=== PATIENT | male | born 1960 | race Two or more races ===

== ENCOUNTER 2018-04-18 19:54 | Inpatient (IN) | payer MEDICARE, OTHER ==
[~2018-04-18] VITALS: Ht 172.7 cm; Wt 62.1 kg
--- NOTE | 2018-04-18 20:15 | NUR ---
PT BB SELF C/C R LOWER LEG SWELLING/PAIN 10/10 RADIATING FROM UPPER R THIGH DOWN TO R LOWER KNEE. PT IS AAOX4. PT IS AFEBRILE. PT DENIES N/V/D. SKIN WNL. PT DENIES BLOODY SPUTUM/COUGH. NO S/S OF ACUTE DISTRESS NOTED. RESP EVEN AND UNLABORED. PT PLACED ON DETAIL DRAFTER AND POX. PT SAFETY AND COMFORT MEASURES IN PLACE. AWAITING MD FOR EVAL.
--- NOTE | 2018-04-18 20:30 | NUR ---
CALLED RADIOLOGY FOR PSYCHIATRIC SECRETARY
[2018-04-18 20:36] LABS: BASOPHILS # (AUTO) 0.3 /CMM (0.0-0.2); BASOPHILS % (AUTO) 4.2 % (0.0-2.0); EOSINOPHILS % (AUTO) 0.8 % (0.0-6.0); HEMATOCRIT 58 % (39-51); LYMPHOCYTES # (AUTO) 1.1 /CMM (0.8-4.8); LYMPHOCYTES % (AUTO) 14.2 % (20.0-44.0); MEAN CORPUSCULAR HEMOGLOBIN 30 PG (26.0-33.0); MEAN CORPUSCULAR HGB CONC 33 g/dl (31.0-36.0); MEAN CORPUSCULAR VOLUME 92 fL (80-96); MONOCYTES # (AUTO) 0.7 /CMM (0.1-1.30); MONOCYTES % (AUTO) 9.3 % (2.0-12.0); NEUTROPHILS # (AUTO) 5.8 /CMM (1.8-8.9); NEUTROPHILS % (AUTO) 71.5 % (43.0-81.0); PLATELET COUNT (AUTO) 168 /CMM (150-450); RDW COEFFICIENT OF VARIATION 14.5 (11.5-15.0)
[2018-04-18 20:55] LABS: CALCIUM, SERUM 8.8 mg/dL (8.5-10.1); CREATININE 0.9 mg/dL (0.6-1.3); POTASSIUM 4.2 mmol/L (3.5-5.1)
[2018-04-18 20:59] LABS: INR 1.06 (0.87-1.13)
[2018-04-18] MEDS ORDERED: ACETAMINOPHEN ES 500 MG TABLET PO ONE (21:00)
[2018-04-18 21:12] LABS: EOSINOPHILS % (MANUAL) 2 % (0-4); LYMPHOCYTES % (MANUAL) 10 % (16-48); MONOCYTES % (MANUAL) 1 % (0-11.0); NEUTROPHILS % (MANUAL) 86 (42-76); REACTIVE LYMPHOCYTES 1 % (0-0)
--- NOTE | 2018-04-18 21:44 | NUR ---
INITIAL FINDINGS OF DUPLEX TEST FOR LOWER EXT RIGHT SHOWED POSITIVE FOR DVT AT THE CFV, SFV PROX, SFV MID AND POPV LEVELS. ADVISED ATTENDING RN (ARABELLA) AND ESCOBAR HOTLINE REP (JAMES) OF PRELIMARY RESULTS.
--- NOTE | 2018-04-18 21:48 | NUR ---
CALLED FOR MED SURG BED
[2018-04-18] MEDS ORDERED: ENOXAPARIN SODIUM 30 MG/0.3 ML DISP.SYRIN IV ONE (22:00)
[2018-04-18] MEDS ORDERED: ENOXAPARIN SODIUM 80 MG/0.8 ML DISP.SYRIN SQ ONE (22:21)
[2018-04-18] MEDS ORDERED: HYDROCODONE/APAP 5/325MG 1 EACH TABLET PO PRN (22:30)
[2018-04-18] MEDS ORDERED: Z GUARD REMEDY 2 OZ OINT TP PRN (22:30)
[2018-04-18] MEDS ORDERED: ZOLPIDEM TARTRATE 5 MG TABLET PO PRN (22:30)
[2018-04-18] MEDS ORDERED: MAG HYDROX/AL HYDROX/SIMETH 30 ML UDC PO PRN (22:30)
[2018-04-18] MEDS ORDERED: MORPHINE SULFATE INJ 2 MG/ML DISP.SYRIN IV PRN (22:30)
[2018-04-18] MEDS ORDERED: ACETAMINOPHEN 325 MG TABLET PO PRN (22:30)
[2018-04-18] MEDS ORDERED: ENOXAPARIN SODIUM 60 MG/0.6 ML DISP.SYRIN SQ ONE (22:30)
[2018-04-18] MEDS ORDERED: MAGNESIUM HYDROXIDE 30 ML UDC PO PRN (22:30)
[2018-04-18] MEDS ORDERED: ONDANSETRON HCL/PF 4 MG/2 ML VIAL IVP PRN (22:30)
--- NOTE | 2018-04-18 22:30 | NUR ---
TO BED 304-2
--- NOTE | 2018-04-18 22:44 | NUR ---
REPORT GIVEN TO [facility] [employer]NAGERNERY RAMIRES FOR [place]
[2018-04-19] VITALS: BP 139/88
[2018-04-19 04:00] VITALS: BP 125/80
[2018-04-19 06:32] LABS: BASOPHILS % (AUTO) 0.1 % (0.0-2.0); EOSINOPHILS % (AUTO) 0.9 % (0.0-6.0); HEMATOCRIT 56 % (39-51); HEMOGLOBIN 18.5 g/dL (13.5-17.5); LYMPHOCYTES # (AUTO) 1.7 /CMM (0.8-4.8); LYMPHOCYTES % (AUTO) 22.7 % (20.0-44.0); MEAN CORPUSCULAR HEMOGLOBIN 31 PG (26.0-33.0); MEAN CORPUSCULAR HGB CONC 33 g/dl (31.0-36.0); MEAN CORPUSCULAR VOLUME 93 fL (80-96); MONOCYTES # (AUTO) 0.7 /CMM (0.1-1.30); MONOCYTES % (AUTO) 9.6 % (2.0-12.0); NEUTROPHILS # (AUTO) 4.9 /CMM (1.8-8.9); NEUTROPHILS % (AUTO) 66.7 % (43.0-81.0); PLATELET COUNT (AUTO) 172 /CMM (150-450); RDW COEFFICIENT OF VARIATION 15.5 (11.5-15.0); RED BLOOD CELL COUNT(AUTO) 6.01 MIL/uL (4.5-6.0); WHITE BLOOD COUNT (AUTO) 7.3 K/uL (4.3-11.0)
[2018-04-19 06:40] LABS: CALCIUM, SERUM 8.6 mg/dL (8.5-10.1); CREATININE 0.8 mg/dL (0.6-1.3); MAGNESIUM 1.9 mg/dL (1.8-2.4); PHOSPHORUS 3.3 mg/dL (2.5-4.9)
--- NOTE | 2018-04-19 06:45 | NUR ---
HEDGE [employer]D TRADER NOTES AWAKE & RESPONSIVE. NOT IN ANY DISTRESS. NO SOB NOTED. DENIES ANY PAIN OR DISCOMFORT AT THIS TIME. ON TELE SR @ 72 WITH IV-HL PATENT & INTACT. CALL LIGHT WITHIN REACH. BED IN LOWEST POSITION. SR UP X 3 FOR SAFETY WITH BED ALARM ON. WILL ENDORSE TO NEXT SHIFT.
--- NOTE | 2018-04-19 07:10 | NUR ---
RN OPENING/TELE NOTES RECEIVED PT. IN BED AWAKE, A&OX4. BREATHING UNLABORED, AND EVENLY ON ROOM AIR. NO S/S OF ACUTE DISTRESS. PT. DENIES PAIN. IV ACCESS IS INTACT ON LEFT FOREARM. RIGHT LEG HAS PINKNESS IN LOWER EXTREMITY. PT. HAS CRUTCHES AT BEDSIDE. BED IS IN LOWEST, AND LOCKED POSITION. 2 SIDE RAILS UP, AND INSTRUCTED PT. TO USE CALL LIGHT FOR ASSISTANCE. ALL NEEDS MET.
[2018-04-19 07:18] LABS: EOSINOPHILS % (MANUAL) 1 % (0-4); LYMPHOCYTES % (MANUAL) 18 % (16-48); MONOCYTES % (MANUAL) 11 % (0-11.0); NEUTROPHILS % (MANUAL) 70 (42-76)
[2018-04-19] MEDS ORDERED: ZOLP10TA2 PO (07:27)
[2018-04-19] MEDS ORDERED: LURA40TA PO (07:27)
[2018-04-19] MEDS ORDERED: VILA40TA PO (07:27)
[2018-04-19] MEDS ORDERED: DEXL60CA3 PO (07:27)
[2018-04-19] MEDS ORDERED: GABA-534 PO (07:27)
[2018-04-19] MEDS ORDERED: MEMA14CA PO (07:27)
[2018-04-19] MEDS ORDERED: VALS80TA2 PO (07:27)
[2018-04-19] MEDS ORDERED: TAMS0.4C34 PO (07:27)
[2018-04-19] MEDS ORDERED: CLON0.5T12 PO (07:27)
[2018-04-19] MEDS ORDERED: ATOR10TA PO (07:27)
[2018-04-19] MEDS ORDERED: MELO-105 PO (07:27)
[2018-04-19] MEDS ORDERED: ALLO100T PO (07:27)
[2018-04-19 08:00] VITALS: BP 120/76
[2018-04-19] MEDS: ENOXAPARIN SODIUM 60 MG/0.6 ML DISP.SYRIN SQ SCH ×2 (09:04→21:11)
[2018-04-19 16:00] VITALS: BP 138/70
--- NOTE | 2018-04-19 19:30 | NUR ---
MS RN OPENING NOTES: RECEIVED PT ON ROOM AIR AND TOLERATING WELL. NO SOB NOTED. NO S/S OF DISTRESS. FAMILY MEMBERS AT BEDSIDE. IV REMAINS INTACT AND IS CURRENTLY H/L. CALL LIGHT WITHIN PT'S REACH. BED KEPT IN LOW, LOCKED POSITION, AND SIDE RAILS X 2UP. WILL CONTINUE TO MONITOR PT.
--- NOTE | 2018-04-19 19:41 | NUR ---
RN CLOSING NOTES PT. IS IN BED AWAKE, A&OX4 WITH FAMILY AT BEDSIDE. BREATHING UNLABORED, AND EVENLY ON ROOM AIR. NO S/S OF ACUTE DISTRESS. PT. DENIES PAIN. IV ACCESS IS INTACT ON LEFT FOREARM. RIGHT LEG HAS PINKNESS IN LOWER EXTREMITY. PT. HAS CRUTCHES AT BEDSIDE. BED IS IN LOWEST, AND LOCKED POSITION. 2 SIDE RAILS UP, AND INSTRUCTED PT. TO USE CALL LIGHT FOR ASSISTANCE. ALL NEEDS MET.
[2018-04-19 20:00] VITALS: BP 131/77
--- NOTE | 2018-04-20 07:17 | NUR ---
MS RN CLOSING NOTES: ALL NEEDS WERE ATTENDED AND ANTICIPATED FOR. PT IS ANTICIPATING TO SPEAK WITH AN MD AND WOULD LIKE TO GO HOME TODAY. IV REMAINS INTACT. CURRENTLY S/L. PT ON ROOM AIR AND TOLERATING WELL. CALL LIGHT WITHIN PT'S REACH. BED KEPT IN LOW, LOCKED POSITION, AND SIDE RAILS X 2UP. ENDORSED TO AM NURSE FOR [place].
--- NOTE | 2018-04-20 07:20 | NUR ---
MS RN OPENING NOTES RECEIVED PATIENT IN BED RESTING. A/O X4, ABLE TO MAKE NEEDS KNOWN. NO ACUTE DISTRESS, NO SOB. PAIN IS TOLERABLE AT THIS TIME, WILL REASSESS. IV SITE INTACT AND PATENT. KEPT PATIENT SAFE AND COMFORTABLE. BED IN LOW/LOCKED POSITION, SIDERAILS UPX2, CALL LIGHT IN REACH. WILL CONTINUE TO MONITOR ACCORDINGLY.
[2018-04-20 08:00] VITALS: BP 112/80
[2018-04-20] MEDS: ENOXAPARIN SODIUM 60 MG/0.6 ML DISP.SYRIN SQ SCH (08:55)
--- NOTE | 2018-04-20 09:09 | NUR ---
RN NOTES NEW ORDERS FROM DR WHITMORE, GIVE PATIENT COUMADIN 2.5 MG PO ONE TIME BEFORE DISCHARGE TODAY.
[2018-04-20] MEDS ORDERED: WARFARIN SODIUM 5 MG TABLET PO ONE (09:30)
--- NOTE | 2018-04-20 10:15 | NUR ---
DISCHARGED PATIENT IN STABLE CONDITION, PICKED UP BY SON, ACCOMPANIED BY PRIMARY RN AT THE LOBBY VIA WHEELCHAIR. DISCHARGED INSTRUCTIONS GIVEN, VERBALIZED UNDERSTANDING, PAPERWORK AND PRESCRIPTION GIVEN TO PATIENT. ALL BELONGINGS RETURNED. REMOVED IV, APPLIED PRESSURE, NO BLEEDING, NO COMPLICATIONS. REMOVED NAME BAND WELL.
== END 2018-04-20 10:07 | disposition home or self-care (01) | DRG 300 ==
LOC: ER 19:57 → MED 22:40 → TELE 23:42 → MED 04-19 08:49
PROVIDERS: ADMIT Internal Medicine; ATTEND Internal Medicine
DX: I82.411 Acute embolism and thrombosis of right femoral vein (principal); D68.69 Other thrombophilia; I82.431 Acute embolism and thrombosis of right popliteal vein; K74.60 Unspecified cirrhosis of liver; G89.29 Other chronic pain; M54.9 Dorsalgia, unspecified; D45 Polycythemia vera; F17.200 Nicotine dependence, unspecified, uncomplicated; J44.9 Chronic obstructive pulmonary disease, unspecified; B19.20 Unspecified viral hepatitis C without hepatic coma
CPT/HCPCS: 36415; 73590-TC; 80048-TC; 83735-TC; 84100-TC; 85025-TC; 85730-TC; 87081-TC; 93971-TC; A4606; J1650; Z7610

== ENCOUNTER 2025-06-18 14:44 | Inpatient (IN) | payer MEDICARE, OTHER ==
[~2025-06-18] VITALS: Ht 172.7 cm; Wt 44.5 kg
[~2025-06-18 14:44] MED LIST: ALLO100T PO; ATOR10TA PO; CLON0.5T4 PO; DEXL60CA3 PO; GABA-534 PO; LURA40TA PO; MELO-105 PO; MEMA14CA PO; TAMS0.4C34 PO; VILA40TA PO; ZOLP10TA2 PO
[2025-06-18 17:10] LABS: PLATELET COUNT (AUTO) 456 K/uL (150-450); RED BLOOD CELL COUNT(AUTO) 4.33 MIL/uL (4.5-6.0); RED CELL DISTRIBUTION WIDTH 15.6 % (11.5-15.0); WHITE BLOOD COUNT (AUTO) 6.8 K/uL (4.3-11.0)
[2025-06-18 17:21] LABS: CALCIUM, SERUM 8.8 mg/dL (8.5-10.1); CREATININE 0.8 mg/dL (0.6-1.3); SODIUM SERUM 125 mmol/L (136-145); UREA NITROGEN, BLOOD 17 mg/dL (7-18)
[2025-06-18 17:26] LABS: ASPARTATE AMINOTRANSFERASE 22 U/L (15-37); TOTAL PROTEIN, SERUM 7.6 g/dL (6.4-8.2)
[2025-06-18] MEDS ORDERED: CT SWABBABLE VALVE TRANS SET 1 EA INFUS.SET MC ONE (17:44)
[2025-06-18] MEDS ORDERED: IOHEXOL-350 100 ML VIAL IV ONE (17:44)
[2025-06-18] MEDS ORDERED: IV NS 0.9% 250 ML IV ONE (17:44)
[2025-06-18 17:51] LABS: NT-PRO BNP 343 pg/mL (0-125)
[2025-06-18] MEDS: IV NS 0.9% 1,000 ML BAG IV ONE (18:25)
[2025-06-18] MEDS ORDERED: APIXABAN 5 MG TABLET ONE (19:35)
[2025-06-18] MEDS: APIXABAN 5 MG TABLET PO STA (19:36)
[2025-06-18] MEDS ORDERED: ONDANSETRON HCL/PF 4 MG/2 ML VIAL IVP PRN (20:30)
[2025-06-18] MEDS ORDERED: MAGNESIUM HYDROXIDE 30 ML UDC PO PRN (20:30)
[2025-06-18] MEDS ORDERED: ACETAMINOPHEN 325 MG TABLET PO PRN (20:30)
[2025-06-18 22:00] VITALS: BP 120/84; TEMP 98.3; O2SAT 98; O2SAT 99
[2025-06-18] MEDS: IV NS 0.9% 1,000 ML IV PRN (22:05)
[2025-06-18] MEDS: ALBUTEROL FS 2.5 MG/3 ML VIAL.NEB NEB SCH (23:30)
[2025-06-18] MEDS: IPRATROPIUM NEB FS 0.5 MG/2.5 ML AMPUL.NEB NEB SCH (23:30)
[2025-06-19] VITALS (8 sets, daily range): BP systolic 113–118; BP diastolic 63–76; TEMP 97.6–98.1; O2SAT 95–100
[2025-06-19] MEDS: PANTOPRAZOLE 40 MG TABLET.DR PO SCH (07:40)
[2025-06-19 07:43] LABS: PLATELET COUNT (AUTO) 390 K/uL (150-450); RED BLOOD CELL COUNT(AUTO) 4.01 MIL/uL (4.5-6.0); RED CELL DISTRIBUTION WIDTH 15.7 % (11.5-15.0); WHITE BLOOD COUNT (AUTO) 5.8 K/uL (4.3-11.0)
[2025-06-19 08:02] LABS: CALCIUM, SERUM 8.7 mg/dL (8.5-10.1); CREATININE 0.7 mg/dL (0.6-1.3); PHOSPHORUS 3.3 mg/dL (2.5-4.9); SODIUM SERUM 129.0 mmol/L (136-145); UREA NITROGEN, BLOOD 13.0 mg/dL (7-18)
[2025-06-19 08:04] LABS: IRON, SERUM 14.0 ug/dl (50-175)
[2025-06-19] MEDS: APIXABAN 5 MG TABLET PO SCH (09:12)
[2025-06-19 11:38] LABS: ABG BASE EXCESS 1.8 mmol/L (-2.0-3.0); ABG OXYGEN SATURATION 98.2 % (94.0-98.0); ABG PCO2 37.6 mmHg (35.0-48.0); ABG PH 7.453 (7.350-7.450); ABG PO2 131.0 mmHg (83.0-108.0); ABG TOTAL HEMOGLOBIN 10.7 G/dL (13.5-17.5); FLOW, BLOOD GAS 1.00 L/min (0.00-30.00); FRACTIONATED INSPIRED OXYGEN 24.0 %; SITE, ABG LEFT RADIAL
[2025-06-19] MEDS: AZITHROMYCIN 250 MG TABLET PO ONE (11:56)
[2025-06-19] MEDS: AZITHROMYCIN 250 MG TABLET PO SCH (14:45)
[2025-06-19 16:55] LABS: APPEARANCE,URINE CLEAR (CLEAR); BLOOD, URINE NEGATIVE Ery/uL (NEGATIVE); LEUKOCYTE ESTERASE ,URINE NEGATIVE (NEGATIVE); NITRITE, URINE POSITIVE (NEGATIVE); UGLUCOSE 2+ mg/dL (NEGATIVE)
[2025-06-19 17:41] LABS: ADD URINE CULTURE YES; SQUAMOUS EPITHELIAL CELL,UR 0-2 /HPF (None Seen)
== END 2025-06-19 15:10 | disposition left against medical advice (07) | DRG 191 ==
LOC: ER 14:45 → TELE1 19:19
PROVIDERS: ADMIT Nurse Practitioner Family
DX: J44.1 Chronic obstructive pulmonary disease with (acute) exacerbation (principal); E44.0 Moderate protein-calorie malnutrition; E87.1 Hypo-osmolality and hyponatremia; J84.9 Interstitial pulmonary disease, unspecified; J90 Pleural effusion, not elsewhere classified; J98.11 Atelectasis; J43.2 Centrilobular emphysema; Z85.118 Personal history of other malignant neoplasm of bronchus and lung; E78.5 Hyperlipidemia, unspecified; D63.8 Anemia in other chronic diseases classified elsewhere; Z79.01 Long term (current) use of anticoagulants; Z53.29 Procedure and treatment not carried out because of patient's decision for other reasons; Z86.718 Personal history of other venous thrombosis and embolism; Z90.2 Acquired absence of lung [part of]; G89.29 Other chronic pain; F17.210 Nicotine dependence, cigarettes, uncomplicated; K74.60 Unspecified cirrhosis of liver; Z79.899 Other long term (current) drug therapy; E88.09 Other disorders of plasma-protein metabolism, not elsewhere classified; I10 Essential (primary) hypertension; D75.839 Thrombocytosis, unspecified; F09 Unspecified mental disorder due to known physiological condition
CPT/HCPCS: 36415; 36600; 71045-TC; 80048-TC; 80076-TC; 81001; 82728-TC; 82803-TC; 83540-TC; 83690-TC; 83735-TC; 83880; 83935-TC; 84100-TC; 84300-TC; 84439-TC; 84443-TC; 84484-TC; 85025-TC; 87086-TC; 93970-TC; 94799-TC; A4223; G0378; J7030; J7050; Q9967